=== PATIENT | female | born 1985 | race Caucasian/White ===

== ENCOUNTER 2023-02-08 11:24 | Emergency (ER) | payer OTHER ==
[~2023-02-08] VITALS: Ht 167.6 cm; Wt 117.5 kg
[2023-02-08] MEDS ORDERED: IBUP-1957 PO (12:08)
[2023-02-08] MEDS ORDERED: HYDR-4275 PO (12:08)
[2023-02-08] MEDS ORDERED: KETOROLAC TROMETHAMINE INJ 60 MG/2 ML VIAL IM ONE (12:30)
--- NOTE | 2023-02-08 12:30 | NUR ---
BIBS FOR BACK PAIN. A/O X 3, ABLE TO MAKE NEEDS KNOWN. TOLERATING WELL ON ROOM AIR.
[2023-02-08] MEDS ORDERED: KETOROLAC TROMETHAMINE INJ 30 MG/ML VIAL ONE (12:43)
--- NOTE | 2023-02-08 13:18 | NUR ---
Patient discharged to home in stable condition. Written and verbal after care instructions given. Patient verbalizes understanding of instruction.
[2023-02-08 13:19] VITALS: BP 117/75
== END 2023-02-08 13:19 | disposition home or self-care (01) ==
LOC: ER 11:32
DX: M54.50 Low back pain, unspecified (principal); Z60.2 Problems related to living alone; Z79.899 Other long term (current) drug therapy
CPT/HCPCS: 99283; 96372; J1885